=== PATIENT | female | born 2000 | race Hispanic/Latino ===

== ENCOUNTER 2021-09-15 12:46 | Emergency (ER) | payer SELFPAY ==
[2021-09-15 13:03] VITALS: BP 154/101
[2021-09-15 14:06] LABS: Basophils % (Auto) 0.2 % (0.0-1.8); Eosinophils # (Auto) 0.3 K/mm3 (0.0-0.4); Eosinophils % (Auto) 2.3 % (0.0-4.3); Hematocrit 43.9 % (30.3-42.9); Hemoglobin 14.1 gm/dl (10.1-14.3); Lymphocytes # (Auto) 3.9 K/mm3 (1.2-5.4); Lymphocytes % (Auto) 29.2 % (13.4-35.0); Mean Corpuscular HGB Conc 32 % (30-34); Mean Corpuscular Volume 86 fl (79-97); Monocytes # (Auto) 0.8 K/mm3 (0.0-0.8); Monocytes % (Auto) 6.1 % (0.0-7.3); Platelet Count 280 K/mm3 (140-440); Red Blood Count 5.14 M/mm3 (3.65-5.03); Red Cell Distribution Width 14.5 % (13.2-15.2)
[2021-09-15 14:22] LABS: BUN/Creatinine Ratio 19; Blood Urea Nitrogen 17 mg/dL (7-17); Calcium 9.2 mg/dL (8.4-10.2); Hemolysis Index 20
[2021-09-15 17:49] LABS: Amphetamine Screen,Urine Negative; Benzodiazepines Screen,Urine Negative; Cannabinoid Screen,Urine Negative; Methadone Screen,Urine Negative; Opiate Screen,Urine Negative
[2021-09-15 17:50] LABS: Bacteria,Urine 1+ /HPF (Negative); Bilirubin,Urine NEG (Negative); Blood,Urine NEG (Negative); Color,Urine Yellow (Yellow); Mucus,Urine FEW /HPF; Protein,Urine <15 mg/dL mg/dL (Negative)
--- NOTE | 2021-09-15 20:51 | Emergency Department Report ---
ED General Adult HPI - General Chief complaint: Medical Clearance Stated complaint: ABDOMINAL PAIN/VOMITING Source: patient Mode of arrival: Ambulatory Limitations: No Limitations - History of Present Illness Initial comments: Patient is a 21-year-old female with a history of hypertension, [id number] diabetes, bipolar disorder, alcohol abuse and benzodiazep ine abuse who presents to the ED with complaint of acute onset persistent painful swollen mild erythematous rash on substernal chest wall on the xiphoid process for the last 1 week, worse in the last 2 days. Patient states that she is currently at a detox facility in [place] for benzodiazepine and alcohol abuse, and noticed the painful rash on her substernal chest wall and decided come to the ED for evaluation. Patient denies dizziness, syncope, fever, chills, nausea and vomiting, headache, cough, sore throat, abdominal pain, back pain, traumatic injury or heavy lifting. MD Complaint: Swollen, painful rash on substernal chest wall -: week(s) (1) Location: chest (Substernal chest wall) Radiation: non-radiation Severity scale (0 -10): 8 Quality: aching, sharp Consistency: constant Improves with: none Worsens with: other (Palpation) Associated Symptoms: denies other symptoms, chest pain (Localized substernal chest wall tenderness due to a mild erythematous maculopapular rash), rash (Mild erythematous maculopapular rash on the substernal chest wall). denies: confusion, cough, diaphoresis, fever/chills, headaches, loss of appetite, m alaise, nausea/vomiting, shortness of breath, syncope, weakness Treatments Prior to Arrival: none - Related Data Previous Rx's Medication Instructions Recorded Last Taken Type Ibuprofen [Motrin] 600 mg PO Q8H PRN #20 tablet 09/15/21 Unknown Rx cephALEXin [Keflex] 500 mg PO Q8HR #30 cap 09/15/21 Unknown Rx Allergies Allergy/AdvReac Type Severity Reaction Status Date / Time giles Allergy Rash Verified 09/15/21 12:55 kiwi Allergy Rash Verified 09/15/21 12:55 michael Allergy Rash Verified 09/15/21 12:55 pineapple Allergy Rash Verified 09/15/21 12:55 ED Review of Systems ROS: Stated complaint: ABDOMINAL PAIN/VOMITING Other details as noted in HPI Constitutional: denies: chills, fever Eyes: denies: eye pain, eye discharge, vision change ENT: denies: ear pain, throat pain Respiratory: denies: cough, shortness of breath, wheezing Cardiovascular: chest pain (Localized chest wall pain on the xiphoid process due to mild erythematous rash on anterior substernal chest wall area). denies: palpitations Endocrine: no symptoms reported Gastrointestinal: denies: abdominal pain, nausea, vomiting, diarrhea Genitourinary: denies: urgency, dysuria, discharge Musculoskeletal: denies: back pain, joint swelling, arthralgia Skin: rash (Mild erythematous maculopapular rash with localized pain on anterior substernal chest wall), change in color. denies: lesions, pruritus Neurological: denies: headache, weakness, paresthesias Psychiatric: denies: anxiety, depression Hematological/Lymphatic: denies: easy bleeding, easy bruising ED Past Medical Hx - Past Medical History Previous Medical History?: Yes Hx Hypertension: Yes Hx Diabetes: Yes Hx Psychiatric Treatment: Yes (Cutter, ETOH abuse and Xanax abuse) - Surgical History Past Surgical History?: Yes Additional Surgical History: T&A - Medications Home Medications: Home Medications Medication Instructions Recorded Confirmed Last Taken Type Ibuprofen [Motrin] 600 mg PO Q8H PRN #20 tablet 09/15/21 Unknown Rx cephALEXin [Keflex] 500 mg PO Q8HR #30 cap 09/15/21 Unknown Rx ED Physical Exam - General Limitations: No Limitations General appearance: alert, in no apparent distress - Head Head exam: Present: atraumatic, normocephalic, normal inspection - Eye Eye exam: Present: normal appearance, PERRL, EOMI Pupils: Present: normal accommodation - ENT ENT exam: Present: normal exam, normal orophraynx, mucous membranes moist, TM's normal bilaterally, normal external ear exam - Neck Neck exam: Present: normal inspection, full ROM. Absent: tenderness - Respiratory Respiratory exam: Present: normal lung sounds bilaterally, chest wall tenderness (Palpable reproducible substernal localized chest wall tenderness on this xiphoid process due to a mild erythematous maculopapular rash). Absent: respiratory distress, wheezes, rales, rhonchi, accessory muscle use, decreased breath sounds, prolonged expiratory - Cardiovascular Cardiovascular Exam: Present: normal rhythm, tachycardia, normal heart sounds. Absent: systolic murmur, diastolic murmur, rubs, gallop - GI/Abdominal GI/Abdominal exam: Present: soft, normal bowel sounds. Absent: tenderness, guarding, rebound, hyperactive bowel sounds, hypoactive bowel sounds, organomegaly, mass - Extremities Exam Extremities exam: Present: normal inspection, full ROM, normal capillary refill. Absent: tenderness - Back Exam Back exam: Present: normal inspection, full ROM. Absent: tenderness, CVA tenderness (R), CVA tenderness (L), muscle spasm, paraspinal tenderness, vertebral tenderness - Neurological Exam Neurological exam: Present: alert, oriented X3, CN II-XII intact, normal gait, reflexes normal - Psychiatric Psychiatric exam: Present: normal affect, normal mood, anxious - Skin Skin exam: Present: warm, dry, intact, normal color, rash (Mild erythematous maculopapular rash with localized tenderness on substernal chest wall area over the xiphoid process), erythema ED Course Vital Signs 09/15/21 12:56 Temperature 98.8 F Pulse Rate 100 H Respiratory 20 Rate Blood Pressure 154/101 [Right] O2 Sat by Pulse 96 Oximetry ED Medical Decision Making - Lab Data Result diagrams: 09/15/21 13:15 09/15/21 13:15 - Medical Decision Making This is a 21-year-old female with a history of hypertension, [id number] diabetes, bipolar disorder, alcohol abuse and benzo diazepine abuse who presents to the ED with complaint of acute onset persistent painful swollen mild erythematous rash on substernal chest wall on the xiphoid process for the last 1 week, worse in the last 2 days. Patient states that she is currently at a detox facility in [place] for benzodiazepine and alcohol abuse, and noticed the painful rash on her substernal chest wall and decided come to the ED for evaluation. In the ED, patient is alert and oriented x3 and is not in any distress. Lab test results were reviewed and showed hyperglycemia of 221 mg/dL and acute leukocytosis of 13,400. The rest of the lab test results were nonactionable. Patient was discharged home on medications and advised to follow-up with her primary care physician in 7 to 10 days for reevaluation or return to the ED immediately if symptoms get worse. - Differential Diagnosis Cellulitis; folliculitis; cutaneous abscess; muscle strain Critical care attestation.: If time is entered above; I have spent that time in minutes in the direct care of this critically ill patient, excluding procedure time. ED Disposition Clinical Impression: Abscess or cellulitis of chest wall, Acute folliculitis Disposition: 01 HOME / SELF CARE / HOMELESS Is pt being admited?: No Does the pt Need Aspirin: No Condition: Stable Instructions: Cellulitis, Adult, [id number], Folliculitis Additional Instructions: Take medication with food, drink plenty of fluids and follow-up with your primary care physician in 7 to 10 days for reevaluation. Return to the ED immediately if symptoms get worse Prescriptions: cephALEXin [Keflex] 500 mg PO Q8HR #30 cap Ibuprofen [Motrin] 600 mg PO Q8H PRN #20 tablet PRN Reason: Pain Referrals: [facility] [Provider Group] - 7-10 days Time of Disposition: 20:53 Print Language: ITALIAN
== END 2021-09-15 21:37 | disposition home or self-care (01) ==
LOC: ED 12:46
DX: L02.213 Cutaneous abscess of chest wall (principal); L73.9 Follicular disorder, unspecified; I10 Essential (primary) hypertension; E11.9 Type 2 diabetes mellitus without complications; F10.10 Alcohol abuse, uncomplicated; Z98.890 Other specified postprocedural states; Z91.018 Allergy to other foods
CPT/HCPCS: 36415; 80048; 80307; 80320; 81001; 85025; 99283; G0480